=== PATIENT | male | born 1980 | race Caucasian/White ===

== ENCOUNTER 2020-10-19 20:08 | Emergency (ER) | payer OTHER ==
[2020-10-19 20:16] VITALS: BP 112/72; PULSE 65; RESP 20; TEMP 98.6
[2020-10-19] MEDS ORDERED: PROPARACAINE 0.5% OPHTH DROPS 15 ML BTL RIGHT EYE STA (20:16)
[2020-10-19] MEDS ORDERED: FLUORESCEIN STRIPS 1 MG STRIP RIGHT EYE ONE (20:16)
[2020-10-19] MEDS ORDERED: DIPH,PERTUS(ACELL)TETVAC-LF 0.5 ML VIAL IM ONE (20:20)
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
[2020-10-19] MEDS ORDERED: OFLOXACIN 0.3% OPHTH DROPS 5 ML BOTTLE RIGHT EYE STA (21:11)
== END 2020-10-19 21:27 | disposition home or self-care (01) ==
LOC: EC 20:08
DX: T15.91XA Foreign body on external eye, part unspecified, right eye, initial encounter (principal); Z23 Encounter for immunization; F17.200 Nicotine dependence, unspecified, uncomplicated; W22.8XXA Striking against or struck by other objects, initial encounter; Y93.55 Activity, bike riding
CPT/HCPCS: 65205; 90471; 90715; 99283